=== PATIENT | female | born 1970 | race Hispanic/Latino ===

== ENCOUNTER 2021-01-10 15:41 | Emergency (ER) | payer OTHER ==
[~2021-01-10] VITALS: Ht 163.8 cm; Wt 91.0 kg
[2021-01-10] MEDS ORDERED: LOSARTAN POTASS50 MG PO (16:32)
[2021-01-10] MEDS ORDERED: PRAVASTATIN SOD20 MG PO (16:33)
[2021-01-10 19:12] VITALS: BP 138/65
== END 2021-01-10 19:21 | disposition home or self-care (01) | DRG 552 ==
LOC: ED 15:41
DX: M54.5 Low back pain (principal); I10 Essential (primary) hypertension; E78.5 Hyperlipidemia, unspecified; V49.50XA Passenger injured in collision with unspecified motor vehicles in traffic accident, initial encounter

== ENCOUNTER 2024-08-31 15:13 | Emergency (ER) | payer OTHER ==
[~2024-08-31] VITALS: Ht 163.8 cm; Wt 79.3 kg
[2024-08-31] VITALS (24 sets, daily range): BP systolic 104–146; BP diastolic 60–81
[~2024-08-31 15:13] MED LIST: LOSARTAN POTASS50 MG PO; PRAVASTATIN SOD20 MG PO
[2024-08-31] MEDS ORDERED: ASPIRIN 81 MG/TAB PO ONE (15:20)
[2024-08-31] MEDS ORDERED: ONDANSETRON HCl 4 MG/2 ML SDV IV ONE (15:35)
[2024-08-31 15:54] LABS: BASO% 0.6 % (0-3); HEMATOCRIT 43.1 % (37.0-47.0); HEMOGLOBIN 13.9 g/dl (12.0-16.0); IMMATURE GRANULOCYTES 0.1 % (0.0-5.0); LYMPH% 16.2 % (15-41); MEAN CELL VOLUME 93.9 fL CALC (80.0-100.0); MEAN CORPUSCULAR HGB 30.3 pG CALC (26.0-32.0); MEAN CORPUSCULAR HGB CONC 32.3 g/dL CAL (32.0-36.0); MONO% 7.9 % (2-13); NEUT# 9.26 thou/uL (2.00-7.15); NEUT% 74.2 % (42-76); RED BLOOD COUNT 4.59 mill/uL (4.20-5.60); RED CELL DISTRI WIDTH 13.2 % (11.5-15.5)
[2024-08-31 16:01] LABS: BUN 14 mg/dL (7-17); BUN/CREATININE RATIO 25 (12-20 (CALC)); CHLORIDE 106 mmol/l (95-108); CREATININE 0.6 mg/dL (0.5-1.0); ESTIMATED GFR 106 ML/MIN (>=90 (CALC)); POTASSIUM 3.9 mmol/l (3.5-5.1); SODIUM 139 mmol/l (137-146)
[2024-08-31 16:10] LABS: ALBUMIN 4.7 g/dL (3.2-5.0); ALKALINE PHOSPHATASE 227 u/l (38-126); ANION GAP 9 (6-22 (CALC)); BILIRUBIN, TOTAL 0.6 mg/dL (0.02-1.3); CARBON DIOXIDE 28 mmol/l (22-30); SGOT/AST 43 u/l (14-36); TOTAL PROTEIN 8.1 g/dL (6.3-8.2)
[2024-08-31] MEDS ORDERED: PROTONIX40 M2 PO (21:09)
== END 2024-08-31 21:23 | disposition home or self-care (01) | DRG 313 ==
LOC: ED 15:13
PROVIDERS: Family Medicine
DX: R07.9 Chest pain, unspecified (principal); K44.9 Diaphragmatic hernia without obstruction or gangrene; K21.9 Gastro-esophageal reflux disease without esophagitis; I10 Essential (primary) hypertension; E78.5 Hyperlipidemia, unspecified
CPT/HCPCS: Q9967